=== PATIENT | male | born 1995 | race Caucasian/White ===

== ENCOUNTER → 2023-07-27 | Outpatient (CLI) | payer OTHER | LOC: MHCPAIN 08:24 | DX: M47.892 Other spondylosis, cervical region (principal); M54.12 Radiculopathy, cervical region | CPT/HCPCS: G0463 ==

== ENCOUNTER → 2023-08-01 | Outpatient (CLI) | payer OTHER ==
[~2023-08-01] MED LIST: Atropine 1 MG/10 ML SYRINGE IV ONE; Iohexol 300 - 10 ML VIAL ONE; Lidocaine PF 2% (20 MG/ML) 2 ML VIAL ONE; Midazolam 2 MG/2 ML VIAL ONE; ePHEDrine 50 MG/10 ML VIAL IV ONE; fentaNYL 50 MCG/ML 2 ML VIAL ONE
== END ==
LOC: MHCPAIN 13:52
DX: M54.12 Radiculopathy, cervical region (principal)
CPT/HCPCS: J0461; J1100; J2250; J3010; Q9967

== ENCOUNTER → 2023-12-15 | Outpatient (CLI) | payer OTHER ==
[~2023-12-15] MED LIST changes: -Atropine 1 MG/10 ML SYRINGE IV ONE; +Glycopyrrolate 0.2 MG/ML 1 ML VIAL ONE; -Iohexol 300 - 10 ML VIAL ONE; -Lidocaine PF 2% (20 MG/ML) 2 ML VIAL ONE; -ePHEDrine 50 MG/10 ML VIAL IV ONE
== END ==
LOC: MHCPAIN 11-21 09:26
DX: M47.812 Spondylosis without myelopathy or radiculopathy, cervical region (principal); M54.2 Cervicalgia
CPT/HCPCS: J0665; J2250; J3010

== ENCOUNTER → 2023-12-21 | Outpatient (CLI) | payer OTHER | LOC: MHCPAIN 08:36 | DX: M47.22 Other spondylosis with radiculopathy, cervical region (principal); M48.02 Spinal stenosis, cervical region; R03.0 Elevated blood-pressure reading, without diagnosis of hypertension; M54.2 Cervicalgia | CPT/HCPCS: G0463 ==

== ENCOUNTER → 2023-12-29 | Outpatient (CLI) | payer OTHER ==
[~2023-12-29] MED LIST changes: +Atropine 1 MG/10 ML SYRINGE IV ONE; +ePHEDrine 50 MG/10 ML VIAL IV ONE
== END ==
LOC: MHCPAIN 08:01
DX: M47.812 Spondylosis without myelopathy or radiculopathy, cervical region (principal); M54.2 Cervicalgia
CPT/HCPCS: J0461; J0665; J2250; J3010

== ENCOUNTER → 2024-01-04 | Outpatient (CLI) | payer OTHER | LOC: MHCPAIN 13:11 | DX: M47.812 Spondylosis without myelopathy or radiculopathy, cervical region (principal); M48.02 Spinal stenosis, cervical region; G89.29 Other chronic pain | CPT/HCPCS: G0463 ==